=== PATIENT | male | born 1930 | race Caucasian/White ===

== ENCOUNTER 2017-01-27 10:11 | Inpatient (IN) ==
--- NOTE | 2017-01-27 10:35 | Emergency Department Note ---
Disposition Clinical Impression: Nausea vomiting and diarrhea Abdominal pain Qualifiers: Abdominal location: generalized Qualified Code(s): R10.84 - Generalized abdominal pain Disposition: Admitted As Inpatient Condition: Fair Referrals: Carlos Danielle Jr, MD [Primary Care Provider] - Forms: ED Satisfaction Letter Time of Disposition: 14:39 Nausea/Vomiting/Diarrhea HPI - General Chief complaint: ED Nausea/Vomiting/Diarrhea Stated complaint: N/V/D "chills" Time Seen by Provider: 01/27/17 10:29 Source: patient Mode of arrival: ambulatory Limitations: no limitations Nursing Notes Reviewed: Yes Vital Signs Reviewed: Yes - History of Present Illness HPI Narrative: 86-year-old male who comes in and states he was hospitalized in November 5 days after being discharged to develop some intermittent nausea vomiting and diarrhea. Also been having some chills. Pt Subjective Complaint: nausea, vomiting, diarrhea Onset (ago): week(s) (Supple) Description of emesis: food contents Description of Diarrhea: water If pain, Location of pain: diffuse Severity: mild Quality: cramping - Related Data Home Medications Medication Instructions Recorded Confirmed Aspirin 81 mg PO DAILY 12/04/16 12/05/16 Atorvastatin Calcium [Lipitor] 20 mg PO HS 12/04/16 12/05/16 Tamsulosin [Flomax] 0.4 mg PO DAILY 12/04/16 12/05/16 Clopidogrel [Plavix] 75 mg PO DAILY 12/05/16 12/05/16 Finasteride [Proscar] 5 mg PO DAILY 12/05/16 12/05/16 Ibuprofen [Advil] 400 mg PO DAILY 12/05/16 12/05/16 Allergies Allergy/AdvReac Type Severity Reaction Status Date / Time phenobarbital Allergy Rash Verified 01/27/17 10:20 Constitutional: Denies: fever, chills, weakness, weight change Eyes: Denies: eye pain, eye discharge, vision change ENT ED: Denies: ear pain, throat pain, dental pain, hearing loss, epistaxis, congestion, dysphagia Cardiovascular: Denies: chest pain, palpitations, dyspnea on exertion, edema, syncope Respiratory: Denies: cough, dyspnea, wheezes, hemoptysis, stridor Gastrointestinal: Reports: abdominal pain, nausea, vomiting, diarrhea. Denies: constipation, hematemesis, melena, hematochezia Genitourinary: Denies: urgency, dysuria, frequency, hematuria Musculoskeletal: Denies: back pain, neck pain, arthralgia, myalgia Integumentary: Denies: rash, abrasion, lesions Neurological: Denies: headache, weakness, numbness, paresthesias, confusion, abnormal gait, vertigo Psychiatric: Denies: anxiety, depression, suicidal thoughts, homicidal thoughts , auditory hallucinations, visual hallucinations Endocrine: Denies: fatigue Hematological/Lymphatic: Denies: easy bleeding, easy bruising Allergic/Immunologic: Denies: facial swelling, urticaria Past Medical History - Past Medical History Medical history: Reports: arthritis, atrial fibrillation, cancer, coronary artery disease, other Surgical history: Reports: cholecystectomy, colectomy Psychiatric history: Reports: no psych history - Social History Smoking Status: Never smoker Smokeless Tobacco Status: No Alcohol use: Reports: occasionally Drug use: Reports: none Physical Exam - General Limitations: no limitations General appearance: alert, in no apparent distress - Head Head exam: atraumatic, normocephalic, normal inspection - Eye Eye exam: Present: normal appearance, PERRL, EOMI - ENT ENT exam: normal exam, normal oropharynx, mucous membranes moist - Neck Neck exam: Present: normal inspection, full ROM, trachea midline - Chest Chest inspection: Present: normal inspection, symmetric chest wall rise - Respiratory Respiratory exam: Present: normal lung sounds bilaterally - Cardiovascular Cardiovascular exam: Present: regular rate, normal rhythm, normal heart sounds - Abdominal Exam Abdominal exam: Present: soft, Non-Tender. Absent: tenderness, distention, guarding, rebound, rigidity - Extremities Exam Extremities exam: Present: normal inspection, full ROM. Absent: tenderness, pedal edema - Expanded Lower Extremity Exam Neurovascular/Tendon exam: Present: normal capillary refill Gait: observed and normal - Back Exam Back exam: Present: normal inspection, full ROM. Absent: tenderness - Neurological Exam Neurological exam: Present: alert, oriented X3 - Psychiatric Psychiatric exam: Present: normal affect, normal mood - Skin Skin exam: Present: warm, dry, intact, normal color Course - Reevaluation(s) Reevaluation #1: Patient with intermittent nausea vomiting diarrhea large ventral hernia and shaking chills. Patient does have a large ventral hernia which does not appear to be obstructing. We will admit for further evaluation. Time: 14:38 - Consultations Consultation #1: Discussed with , the hospitalist he will consult Time: 13:30 Consultation #2: Discussed with Faviola [address] nurse practitioner, admit. Time: 14:37 Vital Signs Temperature 98.5 F 01/27/17 10:16 Pulse Rate 77 01/27/17 10:16 Respiratory Rate 18 01/27/17 10:16 Blood Pressure 126/82 01/27/17 10:16 O2 Sat by Pulse Oximetry 97 01/27/17 10:16 Temperature 98.5 F 01/27/17 10:16 Pulse Rate 68 01/27/17 12:59 Respiratory Rate 18 01/27/17 10:16 Blood Pressure 120/72 01/27/17 12:59 O2 Sat by Pulse Oximetry 98 01/27/17 12:59 Oxygen Delivery Oxygen Delivery Room Air Nausea/Vomiting/Diarrhea - Lab Data Lab results reviewed: Yes I reviewed the patient's lab results. Result diagrams: 01/27/17 10:30 01/27/17 10:30 Lab Results 01/27/17 01/27/17 Range/Units 10:30 10:30 WBC 13.4 H (4.3-11.1) K/mcL RBC 4.86 (4.19-5.50) M/mcL Hgb 14.6 (12.9-16.9) g/dL Hct 43.6 (37.5-50.1) % MCV 89.7 (83.0-100.0) fL MCH 30.0 (28.0-33.3) pg MCHC 33.5 (31.6-35.5) g/dL RDW 14.1 (11.5-14.5) % Plt Count 150 (140-400) K/mcL MPV 11.8 (9.4-12.4) fL Immature Gran % 0.5 (0-4) % Seg Neutrophils % 89.3 % Lymphocytes % 4.4 % Monocytes % 5.7 % Eosinophils % 0.0 % Basophils % 0.1 % Neutrophils # 12.0 H (1.6-8.9) K/mcL Lymphocytes # 0.6 (0.6-4.6) K/mcL Monocytes # 0.8 (0.0-1.3) K/mcL Eosinophils # 0.0 (0.0-0.6) K/mcL Basophils # 0.0 (0.0-0.2) K/mcL Sodium 137 (136-145) mEq/L Potassium 4.0 (3.5-4.5) mEq/L Chloride 103 (98-109) mEq/L Carbon Dioxide 25 (19-29) mEq/L BUN 14 (8-26) mg/dL Creatinine 0.92 (0.72-1.25) mg/dL Est GFR ( Amer) > 60 (> 60) Est GFR (Non-Af Amer) > 60 (> 60) BUN/Creatinine Ratio 15 (6-26) Glucose 133 H (70-99) mg/dL Calculated Osmolality 286 (280-300) Calcium 9.2 (8.6-10.8) mg/dL Amylase 30 (25-125) Units/L Lipase 31 (8-78) Units/L - Radiology Data Radiology results reviewed: Yes I reviewed the patient's radiology results. Abdomen/Pelvis CT 01/27/17 10:33 IMPRESSION: Status post previous bowel surgery. No bowel obstruction is seen. There is re-demonstration of a wide-mouth ventral hernia containing nondistended loops of large and small bowel. Enlarged prostate. Pneumobilia with stable mild biliary distention. The patient has undergone previous cholecystectomy. Bilateral renal cysts. Atherosclerotic vascular calcifications. Small right pleural effusion. Minimal right basilar atelectasis. Degenerative changes throughout the lumbar spine. D/ / 01/27/2017 11:43:00 Rolo Dhaliwal MD / Ruma Dangelo Interpreting Provider: Rolo Dhaliwal MD - EKG Data When compared to previous EKG there are: no significant changes Interpretation: no acute changes
[2017-01-27 11:05] LABS: Basophils % 0.1 %; Hematocrit 43.6 % (37.5-50.1); Hemoglobin 14.6 g/dL (12.9-16.9); Immature Granulocytes % 0.5 % (0-4); Lymphocytes # 0.6 K/mcL (0.6-4.6); Lymphocytes % 4.4 %; Mean Corpuscular HGB Conc 33.5 g/dL (31.6-35.5); Mean Corpuscular Volume 89.7 fL (83.0-100.0); Mean Platelet Volume 11.8 fL (9.4-12.4); Monocytes # 0.8 K/mcL (0.0-1.3); Monocytes % 5.7 %; Platelet Count 150 K/mcL (140-400); Red Blood Count 4.86 M/mcL (4.19-5.50); Red Cell Distribution Width 14.1 % (11.5-14.5); Segmented Neutrophils % 89.3 %
[2017-01-27 11:17] LABS: Amylase 30 Units/L (25-125); BUN/Creatinine Ratio 15 (6-26); Blood Urea Nitrogen 14 mg/dL (8-26); Calcium 9.2 mg/dL (8.6-10.8); Carbon Dioxide 25 mEq/L (19-29); Chloride 103 mEq/L (98-109); Glucose 133 mg/dL (70-99); Lipase 31 Units/L (8-78); Osmolality,Calculated 286 (280-300); Sodium 137 mEq/L (136-145); eGFR For African Americans > 60 (> 60); eGFR For Non-African Americans > 60 (> 60)
[2017-01-27] MEDS ORDERED: Ondansetron 4 MG/2 ML VIAL IVP PRN (16:19)
[2017-01-27] MEDS ORDERED: Naloxone 0.4 MG/ML INJ IVP PRN (16:19)
--- NOTE | 2017-01-27 16:59 | Internal Med History&Physical ---
<Jose Luna - Last Filed: 01/27/17 20:39> Internal Medicine - H&P: HPI History of present illness: Mr. Phelps is a 86 year old male Internal Medicine - H&P: Meds Aspirin 81 mg PO DAILY 12/04/16 [History] Atorvastatin Calcium [Lipitor] 20 mg PO HS 12/04/16 [History] Tamsulosin [Flomax] 0.4 mg PO DAILY 12/04/16 [History] Clopidogrel [Plavix] 75 mg PO DAILY 12/05/16 [History] Finasteride [Proscar] 5 mg PO DAILY 12/05/16 [History] Allergies phenobarbital Allergy (Verified 01/27/17 10:20) Rash All Systems PM: A 10-system review of systems was performed and is negative for pertinent findings except as documented above in the HPI. - Constitutional Vitals: Temp Pulse Resp BP Pulse Ox 98.5 F 61 16 108/65 95 01/27/17 19:22 01/27/17 19:22 01/27/17 19:22 01/27/17 19:22 01/27/17 19:22 Internal Med - H&P Results - Labs CBC & Chem 7: 01/27/17 10:30 01/27/17 10:30 - Attending Attestation I examined this patient and my medical decision-making was reviewed with the Advanced Practice Provider. I agree with the documented findings, disposition and treatment plan as described except to the extent set forth below. He presented to the hospital for evaluation of hernia. He reports continuing to pass bowel movements and has had gas. On exam he has a large ventral abdominal hernia which is partially reducible, abdomen is soft and nontender. There are good bowel sounds audible. Plan: 1 metatarsal surface. IV fluids and electrolytes. Nothing by mouth after midnight. Surgical consult for ventral hernia repair. <Faviola Way - Last Filed: 01/27/17 21:09> Date of Encounter: 01/27/17 Time of Encounter: 16:58 Assessment and Plan (1) Nausea vomiting and diarrhea Current visit: Yes Status: Acute 1 patient has been experiencing intermittent nausea vomiting and diarrhea since November. CT revealed no bowel obstruction 2 anti-emetics as needed 3 diet as tolerated 4 consulted surgery-per ED (2) Leukocytosis Current visit: No Status: Acute 1 patient has some leukocytosis-may be reactive presently WBC 13.4, 12/19/16 WBC 9.[address] abdomen lungs with small right pleural effusion and atelectasis, will obtain urine to rule out source 2 continue to monitor CBC Qualifiers: Leukocytosis type: unspecified Qualified Code(s): D72.829 - Elevated white blood cell count, unspecified (3) Abdominal hernia Current visit: No Status: Chronic 1 she has chronic abdominal hernia from previous surgeries. CT of abdomen shows no bowel obstruction however there is bowel within the hernia. Consulted surgery Qualifiers: Hernia type: incisional Obstruction and gangrene presence: with obstruction but without gangrene Qualified Code(s): K43.0 - Incisional hernia with obstruction, without gangrene (4) Afib Current visit: No Status: Chronic 1 is only rate controlled continue with aspirin Qualifiers: Atrial fibrillation type: chronic Qualified Code(s): I48.2 - Chronic atrial fibrillation (5) CAD (coronary artery disease) Current visit: No Status: Chronic 1 A she has history of stents will continue with aspirin and Plavix as well as statin Qualifiers: Coronary Disease-Associated Artery/Lesion type: [place] artery [place] vs. transplanted heart: [place] heart Associated angina: without angina Qualified Code(s): I25.10 - Atherosclerotic heart disease of [place] coronary artery without angina pectoris (6) DVT prophylaxis Current visit: No Status: Acute 1 [facility] Internal Medicine - H&P: HPI Chief complaint: N/V/D abd pain Admitted From: Emergency Dept Plans for Post Hospital Care: Home History of present illness: Mr. Phelps is a 86 year old male past medical history of atrial fibrillation hypertension coronary artery disease with 2 stents and colon cancer. He has a large abdominal hernia from multiple surgeries in the past. The patient was recently admitted to the hospital in November 2016 with small bowel obstruction. He was discharged the patient states since his discharge she has been experiencing intermittent abdominal cramping nausea vomiting and diarrhea, chills . He has been able to eat and drink, and has been passing gas. He denies any melena hematochezia or hematemesis. He did experience on Wednesday an episode of abdominal cramping as well as loose stool and vomited undigested food. He denies any abdominal distention fevers chills cough chest pain shortness of breath. He presented to the ER with the above complaints according to the ER records CT of abdomen with no evidence of bowel obstruction his lab work did reveal a elevated white count 13.4 on 12/19/16 white count was 9.9. He is afebrile temperature 98.5 heart rate 68 pressure 122/72. ER physician did speak with Dr. Stern he stated he would see the patient on consult and to admit to hospitalist services. He was admitted for further evaluation. Presently the patient denies any nausea vomiting diarrhea chest pain stress of breath he is hemodynamically stable. I reviewed this case with Dr. Luna who agrees with plan Past Med Surg Social Fam HX - Past Medical History Medical history: arthritis, atrial fibrillation, cancer, coronary artery disease , other Psychiatric history: no psych history - Past Surgical History Surgical History: cholecystectomy, colectomy - Social History Smoking Status: Never smoker Smokeless Tobacco Status: No Alcohol use: occasionally Drug use: none - Family History Daughter Living Status: Still Living Hx Family Cardiac Disorders: No Hx Family Respiratory Disorders: No Hx Family Cancer: No Hx Family GI Disorders: No Hx Family Endocrine Disorder: No Hx Family Neuromuscular Disorders: No Hx Family Neurologic Disorders: No Hx Family HEENT Disorders: No Hx Family Autoimmune Disorders: No All Systems PM: A 10-system review of systems was performed and is negative for pertinent findings except as documented above in the HPI. - Constitutional Constitutional: chills - Cardiovascular Cardiovascular ROS IM: no chest pain, no diaphoresis, no dyspnea, no lightheadedness, no palpitations, no syncope - Respiratory Respiratory: no cough, no dyspnea, no wheezing, no excessive phlegm production - Gastrointestinal Gastrointestinal: cramping, diarrhea, nausea, vomiting - Musculoskeletal Musculoskeletal ROS IM: no numbness, no tingling - Neurological Neurological ROS: no confusion, no convulsions, no focal weakness, no numbness, no tingling, no tremor(s) - Constitutional Vitals: Temp Pulse Resp BP Pulse Ox 0 F L 68 16 122/75 98 01/27/17 15:33 01/27/17 12:59 01/27/17 15:33 01/27/17 15:33 01/27/17 12:59 General appearance: Present: A&O X 3, morbidly obese - Eye Eye exam: Present: PERRL, conjuntiva pink, sclera anicteric Pupils: Present: PERRL - Neck Neck exam general surgery: Present: supple, trachea midline. Absent: lymphadenopathy - Respiratory Respiratory exam: Present: CTAB. Absent: accessory muscle use, rales, rhonchi, wheezes - Cardiovascular Cardiovascular exam: Present: RRR, +S1, +S2. Absent: diastolic murmur, gallop, rubs, systolic murmur - GI/Abdominal GI/Abdominal exam: Present: hernia, normal bowel sounds, soft, no peritoneal signs. Absent: distended, tenderness - Extremities Exam Extremities exam: Present: warm, radial pulses palpable and symetrical. Absent : calf tenderness, cyanotic, pedal edema - Neurological Exam Neurological exam: Present: CN II-XII intact, oriented X3, no focal deficits. Absent: pronater drift, facial droop, speech deficit - Skin Skin exam: Present: dry, intact Internal Med - H&P Results - Labs CBC & Chem 7: 01/27/17 10:30 01/27/17 10:30 - Diagnostic Studies Other Images Additional comments: Abdomen/Pelvis CT 01/27/17 10:33 IMPRESSION: Status post previous bowel surgery. No bowel obstruction is seen. There is re-demonstration of a wide-mouth ventral hernia containing nondistended loops of large and small bowel. Enlarged prostate. Pneumobilia with stable mild biliary distention. The patient has undergone previous cholecystectomy. Bilateral renal cysts. Atherosclerotic vascular calcifications. Small right pleural effusion. Minimal right basilar atelectasis. Degenerative changes throughout the lumbar spine. D/ / 01/27/2017 11:43:00 Rolo Dhaliwal MD / Ruma Dangelo Interpreting Provider: Rolo Dhaliwal MD
[2017-01-27] MEDS ORDERED: 0.9 % Sodium Chloride 1,000 ML IVC ONE (17:58)
[2017-01-27] MEDS ORDERED: *HR* HYDROcodone/Acet 5/325 mg TABLET PO PRN (18:33)
[2017-01-27] MEDS ORDERED: Acetaminophen 325 MG TABLET PO PRN (18:33)
[2017-01-28 01:39] LABS: Acinetobacter baumannii by PCR Not Detected (Not Detect); Candida albicans by PCR Not Detected (Not Detect); Candida glabrata by PCR Not Detected (Not Detect); Candida krusei by PCR Not Detected (Not Detect); Candida parapsilosis by PCR Not Detected (Not Detect); Enterococcus by PCR Not Detected (Not Detect); Escherichia coli by PCR Not Detected (Not Detect); Klebsiella oxytoca by PCR ***DETECTED*** (Not Detect); Klebsiella pneumoniae by PCR Not Detected (Not Detect); Pseudomonas aeruginosa by PCR Not Detected (Not Detect); Serratia marcescens by PCR Not Detected (Not Detect); Staphylococcus aureus by PCR Not Detected (Not Detect); Streptococcus agalactiae(B)PCR Not Detected (Not Detect); Streptococcus by PCR Not Detected (Not Detect); Streptococcus pneumoniae PCR Not Detected (Not Detect); Streptococcus pyogenes (A) PCR Not Detected (Not Detect); blaKPC Carbapenem-Resist Gene Not Detected (Not Detect); mecA Methicillin-Resist Gene Not Detected (Not Detect); vanA/B Vancomycin-Resist Genes Not Detected (Not Detect)
[2017-01-28 01:41] LABS: Candida tropicalis by PCR Not Detected (Not Detect)
[2017-01-28 01:45] LABS: Bilirubin,Urine Small (Negative); Blood,Urine Negative (Negative); Clarity,Urine Cloudy (Clear); Color,Urine Dark Yellow (Yellow); Glucose,Urine (UA) Normal (Normal); Ketones,Urine 15 mg/dL (Negative); Leukocyte Esterase,Urine Negative (Negative); Nitrite,Urine Negative (Negative); Protein,Urine Trace mg/dL (Neg-Trace); Specific Gravity,Urine 1.024 (1.010-1.025)
[2017-01-28 01:47] LABS: Bacteria,Urine None Seen per hpf (None-Few); Hyaline Casts,Urine None Seen per lpf (None-Few); RBC,Urine 0-3 per hpf (0-3); Squamous Epithelial Cell,Urine Many per lpf (None-Few); WBC,Urine 0-3 per hpf (0-3)
--- NOTE | 2017-01-28 02:11 | Event Note ---
Date of Encounter: 01/28/17 Time of Encounter: 02:08 I was notified that the blood culture is positive for klebsiella oxytoca ( prelim report). Pt seemed to be admitted yesterday with abdominal pain and the blood cultures are showing the organisms. will treat with ceftriaxone and probiotics. UA was negative. will request stool cultures and c diff, in view of h/o diarrhea
[2017-01-28] MEDS: Lactobacillus 1 EACH CAP.SPRINK PO SCH ×3 (02:54→20:25)
[2017-01-28 04:52] LABS: Basophils % 0.1 %; Hematocrit 39.1 % (37.5-50.1); Immature Granulocytes % 0.7 % (0-4); Lymphocytes # 0.6 K/mcL (0.6-4.6); Lymphocytes % 4.4 %; Mean Corpuscular HGB Conc 32.7 g/dL (31.6-35.5); Mean Corpuscular Hemoglobin 28.8 pg (28.0-33.3); Mean Corpuscular Volume 87.9 fL (83.0-100.0); Mean Platelet Volume 11.4 fL (9.4-12.4); Monocytes # 1.1 K/mcL (0.0-1.3); Monocytes % 7.9 %; Neutrophils # 12.1 K/mcL (1.6-8.9); Platelet Count 126 K/mcL (140-400); Red Blood Count 4.45 M/mcL (4.19-5.50); Red Cell Distribution Width 13.9 % (11.5-14.5); Segmented Neutrophils % 86.9 %
[2017-01-28 05:06] LABS: BUN/Creatinine Ratio 16 (6-26); Blood Urea Nitrogen 11 mg/dL (8-26); Carbon Dioxide 23 mEq/L (19-29); Chloride 104 mEq/L (98-109); Glucose 122 mg/dL (70-99); Osmolality,Calculated 277 (280-300); Potassium 3.8 mEq/L (3.5-4.5); Sodium 133 mEq/L (136-145); eGFR For African Americans > 60 (> 60); eGFR For Non-African Americans > 60 (> 60)
[2017-01-28] MEDS: *HR* Enoxaparin 40 MG/0.4 ML SYRINGE SQ SCH (05:10)
[2017-01-28 05:17] LABS: Hemoglobin 12.8 g/dL (12.9-16.9)
[2017-01-28] MEDS: Finasteride 5 MG TABLET PO SCH (09:22)
[2017-01-28] MEDS: Aspirin 81 MG TAB.CHEW PO SCH (09:23)
[2017-01-28 11:14] LABS: Adenovirus F 40/41 PCR Not detected (Not detect); Astrovirus PCR Not detected (Not detect); Campylobacter by PCR Not detected (Not detect); Cryptosporidium by PCR Not detected (Not detect); Cyclospora cayetanensis PCR Not detected (Not detect); E. coli O157 by PCR Not detected (Not detect); Entamoeba histolytica PCR Not detected (Not detect); Enteroaggregative E.coli(EAEC) Not detected (Not detect); Enteropathogenic E.coli(EPEC) Not detected (Not detect); Enterotoxigenic E.coli (ETEC) Not detected (Not detect); Giardia lamblia PCR Not detected (Not detect); Norovirus GI/GII PCR Not detected (Not detect); Plesiomonas shigelloides PCR Not detected (Not detect); Rotavirus A PCR Not detected (Not detect); Salmonella PCR Not detected (Not detect); Sapovirus PCR Not detected (Not detect); Shig/EnteroinvasiveE coli EIEC Not detected (Not detect); Shigalike tox-prod E coli STEC Not detected (Not detect); Vibrio PCR Not detected (Not detect); Vibrio cholerae PCR Not detected (Not detect); Yersinia enterocolitica PCR Not detected (Not detect)
--- NOTE | 2017-01-28 13:50 | Internal Med Progress Note ---
Date of Encounter: 01/28/17 Time of Encounter: 13:45 - Assessment and plan (1) Bacteremia Current Visit: Yes Status: Acute Assessment and plan: blood cx growing gram negative iris, has been started on IV ceftriaxone. Patient feels better today, less chills, no fever at this time. We will follow up final culture results, repeat blood culture tomorrow. Patient might need to go home on IV antibiotics given bacteremia. Unclear source at this time, ua seems clear, chest x-ray shows no pneumonia. will continue to monitor. (2) Nausea vomiting and diarrhea Current Visit: Yes Status: Acute Assessment and plan: improved. abd ct shows no obstruction, moving bowels part of his symptoms may be 2/2 bacteremia. surgery following, has large ventral hernia. will follow surgical recommendations. (3) Afib Current Visit: No Status: Chronic Assessment and plan: stable, continue home meds Qualifiers: Atrial fibrillation type: chronic Qualified Code(s): I48.2 - Chronic atrial fibrillation (4) CAD (coronary artery disease) Current Visit: No Status: Chronic Assessment and plan: continue home meds Qualifiers: Coronary Disease-Associated Artery/Lesion type: [place] artery [place] vs. transplanted heart: [place] heart Associated angina: without angina Qualified Code(s): I25.10 - Atherosclerotic heart disease of [place] coronary artery without angina pectoris (5) HLD (hyperlipidemia) Current Visit: No Status: Chronic Assessment and plan: continue home meds Qualifiers: Hyperlipidemia type: unspecified Qualified Code(s): E78.5 - Hyperlipidemia , unspecified - Time Spent With Patient 25 - 35 minutes - Subjective Interval history: stephenie admitted for chills, n/v h/o mulitple surgeries in skip past, recently admitted on nov 2016 for SBO currently passing gas and moving his bowels, denies any abdominal pain. However still has some nausea, but reports that he was able to eat a good breakfast this morning. no h/o IV lines, indwelling catheters, bedsores, dental caries. he denies any urinary symptoms as well. - Constitutional Vitals: Temp Pulse Resp BP Pulse Ox 97.9 F 72 16 155/89 96 01/28/17 10:23 01/28/17 10:23 01/28/17 10:23 01/28/17 10:23 01/28/17 10:23 General appearance: Present: A&O X 3, morbidly obese Exam: - Eye Eye exam: Present: PERRL, conjuntiva pink, sclera anicteric Pupils: Present: PERRL - Neck Neck exam general surgery: Present: supple, trachea midline. Absent: lymphadenopathy - Respiratory Respiratory exam: Present: CTAB. Absent: accessory muscle use, rales, rhonchi, wheezes - Cardiovascular Cardiovascular exam: Present: RRR, +S1, +S2. Absent: diastolic murmur, gallop, rubs, systolic murmur - GI/Abdominal GI/Abdominal exam: Present: hernia, normal bowel sounds, soft, no peritoneal signs. Absent: distended, tenderness - Extremities Exam Extremities exam: Present: warm, radial pulses palpable and symetrical. Absent : calf tenderness, cyanotic, pedal edema - Neurological Exam Neurological exam: Present: CN II-XII intact, oriented X3, no focal deficits. Absent: pronater drift, facial droop, speech deficit - Skin Skin exam: Present: dry, intact Internal Medicine: Result - Labs CBC & Chem 7: 01/28/17 04:25 01/28/17 04:25 Labs: Short CBC 01/28/17 Range/Units 04:25 WBC 13.9 H (4.3-11.1) K/mcL Hgb 12.8 L D (12.9-16.9) g/dL Hct 39.1 (37.5-50.1) % Plt Count 126 L (140-400) K/mcL Neutrophils # 12.1 H (1.6-8.9) K/mcL BMP 01/28/17 04:25 Sodium 133 L Potassium 3.8 Chloride 104 Carbon Dioxide 23 BUN 11 Creatinine 0.68 L Glucose 122 H Calcium 8.0 L Urine 01/28/17 Range/Units 01:30 Urine Color Dark Yellow (Yellow) Urine Clarity Cloudy A (Clear) Urine pH 6.0 (5.0-8.0) pH Units Ur Specific [place] 1.024 (1.010-1.025) Urine Protein Trace (Neg-Trace) mg/dL Urine Glucose (UA) Normal (Normal) mg/dL - Impressions Impressions Chest X-Ray 01/28/17 11:52 IMPRESSION: Low lung volume study showing mild bibasilar airspace disease, likely atelectasis. Pneumonia cannot be excluded. D/ / Valerie Mesa Cha, MD / Valerie Mesa Cha, MD Interpreting Provider: Valerie Mesa Cha, MD Consult Discharge Plan - Plan Referrals: Carlos Danielle Jr, MD [Primary Care Provider] -
[2017-01-29 04:51] LABS: Hematocrit 38.1 % (37.5-50.1); Hemoglobin 12.4 g/dL (12.9-16.9); Immature Granulocytes % 0.5 % (0-4); Lymphocytes % 6.9 %; Mean Corpuscular HGB Conc 32.5 g/dL (31.6-35.5); Mean Corpuscular Hemoglobin 28.7 pg (28.0-33.3); Mean Corpuscular Volume 88.2 fL (83.0-100.0); Mean Platelet Volume 11.9 fL (9.4-12.4); Platelet Count 132 K/mcL (140-400); Red Blood Count 4.32 M/mcL (4.19-5.50); Red Cell Distribution Width 13.8 % (11.5-14.5); Segmented Neutrophils % 82.1 %
[2017-01-29 04:52] LABS: Basophils % 0.3 %; Eosinophils % 0.4 %; Lymphocytes # 0.8 K/mcL (0.6-4.6); Monocytes # 1.1 K/mcL (0.0-1.3); Monocytes % 9.8 %; Neutrophils # 9.1 K/mcL (1.6-8.9)
[2017-01-29 05:06] LABS: BUN/Creatinine Ratio 15 (6-26); Blood Urea Nitrogen 11 mg/dL (8-26); Calcium 7.8 mg/dL (8.6-10.8); Carbon Dioxide 24 mEq/L (19-29); Chloride 102 mEq/L (98-109); Glucose 109 mg/dL (70-99); Osmolality,Calculated 278 (280-300); Potassium 3.6 mEq/L (3.5-4.5); Sodium 134 mEq/L (136-145); eGFR For African Americans > 60 (> 60); eGFR For Non-African Americans > 60 (> 60)
[2017-01-29] MEDS: *HR* Enoxaparin 40 MG/0.4 ML SYRINGE SQ SCH (05:50)
[2017-01-29] MEDS: Aspirin 81 MG TAB.CHEW PO SCH (09:21)
[2017-01-29] MEDS: Lactobacillus 1 EACH CAP.SPRINK PO SCH ×2 (09:21→19:50)
[2017-01-29] MEDS: Finasteride 5 MG TABLET PO SCH (09:21)
--- NOTE | 2017-01-29 12:07 | General Surgery Consult Note ---
Date of Encounter: 01/29/17 Time of Encounter: 11:22 History of Present Illness Reason for consult: abdominal pain (chills, rigors, nausea and vomiting) Requesting physician: Jeovany Rao History of present illness: This is a delayed dictation: the patient was seen and examined, 01/28/2017, with review Xrays and labs and discussion of findings with patient and family Patient also seen and examined, 01/29/2017. 86-year-old male, well known to me, referred after presenting to the emergency department with recurrent nausea, vomiting, diarrhea. The symptoms were reported to be ongoing for 3 days prior to presentation to the ED. Patient also was experiencing chills and rigors. CT abd/pelvis, 01/27/[address] 12/05/2016, was personally reviewed with [facility]. Patient had a similar presentation and admission 12/05/2016, after undergoing mechanical bowel prep and colonoscopy, 12/04/2016, by Dr Winslow. The colonoscopic findings include : enlarged prostate, patent end to side ileocolic anastomosis iwth no detected polyps. The patient apparently tolerated the colonoscopy well but that evening returned to the ED with abdominal distention, nausea and vomiting. X-rays demonstrated stable ventral incisional hernia containing several loops small with dilated small bowel proximal to those loops within the hernia. The radiologic interpretation described a low grade SBO. The symptoms resolved quickly (within 24 hours) with the patient discharged home 12/07/2016. As noted above, the patient returned to [facility], 01/27/17, with similar complaints. On my arrival to examine the patient, 01/28/2017, the patient was eating a regular meal, indicating that his symptoms had resolved. Blood cultures were positive for GNR, Klebsiella oxytoca. Sensitivities are still pending at the time of this dictation. Repeat examination this date, 01/29/2017, demonstrates an elderly patient in NAD. He has experienced no recurrent abdominal pain, nausea or vomiting. Despite the bacteremia, the patient has remained afebrile and is currently 98.5; pulse is 68, respirations 16, blood pressure 115/69. Patient has remained hemodynamically stable since admission. His only complaint, chills and rigors, have resolved. Skin: Warm, no obvious jaundice Lungs: Clear; no abdominal pain with deep inspiration Cardiac exam: Rate slightly irregular Abdomen: Soft, nontender. Prominent ventral incisional hernia at the cephalad pole of a midline incision to the right of midline. The hernia is easily reducible, with no mevident incarcerated tissue (the CT demonstrates a wide mouthed ventral hernia containing loops non distended small bowel and colon). Bowel sounds are active. Extremities: no obvioous clubbing, cyanosis, or edema Medical history: atrial fibrillation; aortic aneurysm; paroxysmal naz bradycardia; colon cancer, 1993; coronary artery disease, chronic pneumobilia; hyperlipidemia Surgical history: cholecystecomy with reconstruction bile duct 1963; coronary stents x2, 2012; colectomy 2003; history perforated small bowel related to "stenting lower intestine" 2007; colonoscopic polypectomy 2003; cardiac ablation ; prostate surgery 2010. Allergies: phenobarbital Medications on admission: Aspirin 81 mg by mouth daily Atorvastatin 20 mg by mouth daily at bedtime Tamsulosin 0.4 mg by mouth daily Clopidogrel 75 mg by mouth daily Finasteride 5 mg daily Ibuprofen 400 mg by mouth daily Impression: 86-year-old male with recurrent hospitalization for abdominal pain and pain, nausea and vomiting. Patient has known ventral incisional hernia(s) which appear to be stable on repeated radiologic examination but contain loops of small bowel and possibly colon with evidence of, at least, a low-grade small bowel obstruction. With recurrent symptoms, surgery has been discussed in great detail. Risks include hemorrhage, infection, intra abdominal abscess, injury to adjacent structures, possible ilestomy or colostomy, cardiac risks including arrhythmia and GA, respiratory risks, and recurrent hernia. The patient wishes to continue to defer surgery but the recurrent symptoms are concerning. Current bacteremia, Klebsiella oxytoca, undergoing treatment. Etiology for the bacteremia yet to be identified. Based on my conversation with the patient and his family, surgery to be deferred unless recurrent symptoms develop. Past Med Surg Social Fam HX - Past Medical History Medical history: arthritis, atrial fibrillation, cancer, coronary artery disease , other Psychiatric history: no psych history - Past Surgical History Surgical History: cholecystectomy, colectomy - Social History Smoking Status: Never smoker Smokeless Tobacco Status: No Alcohol use: occasionally Drug use: none - Family History Daughter Living Status: Still Living Hx Family Cardiac Disorders: No Hx Family Respiratory Disorders: No Hx Family Cancer: No Hx Family GI Disorders: No Hx Family Endocrine Disorder: No Hx Family Neuromuscular Disorders: No Hx Family Neurologic Disorders: No Hx Family HEENT Disorders: No Hx Family Autoimmune Disorders: No Medications and Allergies Aspirin 81 mg PO DAILY 12/04/16 [History] Atorvastatin Calcium [Lipitor] 20 mg PO HS 12/04/16 [History] Tamsulosin [Flomax] 0.4 mg PO DAILY 12/04/16 [History] Clopidogrel [Plavix] 75 mg PO DAILY 12/05/16 [History] Finasteride [Proscar] 5 mg PO DAILY 12/05/16 [History] Allergies phenobarbital Allergy (Verified 01/27/17 10:20) Rash Review of Systems All systems PM: A 10-system review of systems was performed and is negative for pertinent findings except as documented above in the HPI. General Surgery Exam Initial Vital Signs Temp Pulse Resp BP Pulse Ox 98.5 F 77 18 126/82 97 01/27/17 10:16 01/27/17 10:16 01/27/17 10:16 01/27/17 10:16 01/27/17 10:16 Exam Initial Vital Signs Temp Pulse Resp BP Pulse Ox 98.5 F 77 18 126/82 97 01/27/17 10:16 01/27/17 10:16 01/27/17 10:16 01/27/17 10:16 01/27/17 10:16 Results - Labs 01/29/17 04:04 01/29/17 04:04 Abnormal lab results Hgb 12.4 g/dL (12.9-16.9) L 01/29/17 04:04 Plt Count 132 K/mcL (140-400) L 01/29/17 04:04 Neutrophils # 9.1 K/mcL (1.6-8.9) H 01/29/17 04:04 Sodium 134 mEq/L (136-145) L 01/29/17 04:04 Creatinine 0.71 mg/dL (0.72-1.25) L 01/29/17 04:04 Glucose 109 mg/dL (70-99) H 01/29/17 04:04 Calculated Osmolality 278 (280-300) L 01/29/17 04:04 Calcium 7.8 mg/dL (8.6-10.8) L 01/29/17 04:04 Urine Clarity Cloudy (Clear) A 01/28/17 01:30 Urine Ketones 15 mg/dL (Negative) H 01/28/17 01:30 Urine Bilirubin Small (Negative) H 01/28/17 01:30 Urine Urobilinogen 2.0 mg/dL (Normal) H 01/28/17 01:30 Ur Squamous Epith Cells Many per lpf (None-Few) H 01/28/17 01:30 Enterobacteriac sp PCR DETECTED (Not Detect) A 01/27/17 11:19 Klebsiella oxytoca PCR DETECTED (Not Detect) A 01/27/17 11:19 Diabetes panel 01/29/17 Range/Units 04:04 Sodium 134 L (136-145) mEq/L Potassium 3.6 (3.5-4.5) mEq/L Chloride 102 (98-109) mEq/L Carbon Dioxide 24 (19-29) mEq/L BUN 11 (8-26) mg/dL Creatinine 0.71 L (0.72-1.25) mg/dL Glucose 109 H (70-99) mg/dL Calcium 7.8 L (8.6-10.8) mg/dL Calcium panel 01/29/17 Range/Units 04:04 Calcium 7.8 L (8.6-10.8) mg/dL Pituitary panel 01/29/17 Range/Units 04:04 Sodium 134 L (136-145) mEq/L Potassium 3.6 (3.5-4.5) mEq/L Chloride 102 (98-109) mEq/L Carbon Dioxide 24 (19-29) mEq/L BUN 11 (8-26) mg/dL Creatinine 0.71 L (0.72-1.25) mg/dL Glucose 109 H (70-99) mg/dL Calcium 7.8 L (8.6-10.8) mg/dL Adrenal panel 01/29/17 Range/Units 04:04 Sodium 134 L (136-145) mEq/L Potassium 3.6 (3.5-4.5) mEq/L Chloride 102 (98-109) mEq/L Carbon Dioxide 24 (19-29) mEq/L BUN 11 (8-26) mg/dL Creatinine 0.71 L (0.72-1.25) mg/dL Glucose 109 H (70-99) mg/dL Calcium 7.8 L (8.6-10.8) mg/dL All other labs normal. Consult Discharge Plan - Plan Referrals: Carlos Danielle Jr, MD [Primary Care Provider] -
--- NOTE | 2017-01-29 13:34 | Internal Med Progress Note ---
Date of Encounter: 01/29/17 Time of Encounter: 13:31 - Assessment and plan (1) Bacteremia Current Visit: Yes Status: Acute Assessment and plan: blood cx growing gram negative iris, has been started on IV ceftriaxone. Patient feels better today, less chills, no fever at this time. We will follow up final culture results, repeat blood culture has been sent. Patient will need to go home on IV antibiotics given bacteremia. will get power glide placed. Unclear source at this time, ua seems clear, chest x-ray shows no pneumonia. wait final cx results, will send home with 10 days of IV antibiotics after repeat negative blood cx. (2) Nausea vomiting and diarrhea Current Visit: Yes Status: Acute Assessment and plan: improved. abd ct shows no obstruction, moving bowels part of his symptoms may be 2/2 bacteremia. surgery following, has large ventral hernia. no surgical intervention for now (3) Afib Current Visit: No Status: Chronic Assessment and plan: stable, continue home meds Qualifiers: Atrial fibrillation type: chronic Qualified Code(s): I48.2 - Chronic atrial fibrillation (4) CAD (coronary artery disease) Current Visit: No Status: Chronic Assessment and plan: continue home meds Qualifiers: Coronary Disease-Associated Artery/Lesion type: [place] artery [place] vs. transplanted heart: [place] heart Associated angina: without angina Qualified Code(s): I25.10 - Atherosclerotic heart disease of [place] coronary artery without angina pectoris (5) HLD (hyperlipidemia) Current Visit: No Status: Chronic Assessment and plan: continue home meds Qualifiers: Hyperlipidemia type: unspecified Qualified Code(s): E78.5 - Hyperlipidemia , unspecified - Time Spent With Patient 25 - 35 minutes - Subjective Interval history: stephenie admitted for chills, n/v h/o mulitple surgeries in skip past, recently admitted on nov 2016 for SBO currently passing gas and moving his bowels, denies any abdominal pain. nausea and chills has improved no h/o IV lines, indwelling catheters, bedsores, dental caries. he denies any urinary symptoms as well. - Constitutional Vitals: Temp Pulse Resp BP Pulse Ox 98.5 F 68 16 115/69 95 01/29/17 10:58 01/29/17 10:58 01/29/17 10:58 01/29/17 10:58 01/29/17 10:58 General appearance: Present: A&O X 3, morbidly obese Exam: - Eye Eye exam: Present: PERRL, conjuntiva pink, sclera anicteric Pupils: Present: PERRL - Neck Neck exam general surgery: Present: supple, trachea midline. Absent: lymphadenopathy - Respiratory Respiratory exam: Present: CTAB. Absent: accessory muscle use, rales, rhonchi, wheezes - Cardiovascular Cardiovascular exam: Present: RRR, +S1, +S2. Absent: diastolic murmur, gallop, rubs, systolic murmur - GI/Abdominal GI/Abdominal exam: Present: hernia, normal bowel sounds, soft, no peritoneal signs. Absent: distended, tenderness - Extremities Exam Extremities exam: Present: warm, radial pulses palpable and symetrical. Absent : calf tenderness, cyanotic, pedal edema - Neurological Exam Neurological exam: Present: CN II-XII intact, oriented X3, no focal deficits. Absent: pronater drift, facial droop, speech deficit - Skin Skin exam: Present: dry, intact Internal Medicine: Result - Labs CBC & Chem 7: 01/29/17 04:04 01/29/17 04:04 Labs: Short CBC 01/29/17 Range/Units 04:04 WBC 11.1 (4.3-11.1) K/mcL Hgb 12.4 L (12.9-16.9) g/dL Hct 38.1 (37.5-50.1) % Plt Count 132 L (140-400) K/mcL Neutrophils # 9.1 H (1.6-8.9) K/mcL BMP 01/29/17 04:04 Sodium 134 L Potassium 3.6 Chloride 102 Carbon Dioxide 24 BUN 11 Creatinine 0.71 L Glucose 109 H Calcium 7.8 L Consult Discharge Plan - Plan Referrals: Carlos Danielle Jr, MD [Primary Care Provider] -
[2017-01-30] MEDS: *HR* Enoxaparin 40 MG/0.4 ML SYRINGE SQ SCH (06:20)
[2017-01-30] MEDS: Aspirin 81 MG TAB.CHEW PO SCH (08:44)
[2017-01-30] MEDS: Finasteride 5 MG TABLET PO SCH (08:44)
[2017-01-30] MEDS: Lactobacillus 1 EACH CAP.SPRINK PO SCH ×2 (08:44→19:56)
--- NOTE | 2017-01-30 10:51 | Internal Med Progress Note ---
Date of Encounter: 01/30/17 Time of Encounter: 10:48 - Assessment and plan (1) Bacteremia Current Visit: Yes Status: Acute Assessment and plan: blood cx 01/27 to Klebsiella oxytoca which is sensitive to ceftriaxone, has been started on IV ceftriaxone. Patient feels better today, less chills, no fever at this time. Blood culture was repeated on 01/28, still growing gram-negative iris. We will repeat blood culture today. Patient will need to go home on IV antibiotics given bacteremia. power glide placed. Unclear source at this time, ua seems clear, chest x-ray shows no pneumonia. wait final cx results, will send home with 10 days of IV antibiotics after repeat negative blood cx. (2) Nausea vomiting and diarrhea Current Visit: Yes Status: Acute Assessment and plan: improved. abd ct shows no obstruction, moving bowels part of his symptoms may be 2/2 bacteremia. surgery following, has large ventral hernia. no surgical intervention for now (3) Afib Current Visit: No Status: Chronic Assessment and plan: stable, continue home meds Qualifiers: Atrial fibrillation type: chronic Qualified Code(s): I48.2 - Chronic atrial fibrillation (4) CAD (coronary artery disease) Current Visit: No Status: Chronic Assessment and plan: continue home meds Qualifiers: Coronary Disease-Associated Artery/Lesion type: [place] artery [place] vs. transplanted heart: [place] heart Associated angina: without angina Qualified Code(s): I25.10 - Atherosclerotic heart disease of [place] coronary artery without angina pectoris (5) HLD (hyperlipidemia) Current Visit: No Status: Chronic Assessment and plan: continue home meds Qualifiers: Hyperlipidemia type: unspecified Qualified Code(s): E78.5 - Hyperlipidemia , unspecified - Time Spent With Patient 25 - 35 minutes - Subjective Interval history: stephenie admitted for chills, n/v h/o mulitple surgeries in skip past, recently admitted on nov 2016 for SBO currently passing gas and moving his bowels, denies any abdominal pain. nausea and chills has improved, currently being treated for bacteremia. no h/o IV lines, indwelling catheters, bedsores, dental caries. he denies any urinary symptoms as well. - Constitutional Vitals: Temp Pulse Resp BP Pulse Ox 97.5 F L 62 18 111/69 96 01/30/17 08:13 01/30/17 08:13 01/30/17 08:13 01/30/17 08:13 01/30/17 08:13 General appearance: Present: A&O X 3, morbidly obese Exam: - Eye Eye exam: Present: PERRL, conjuntiva pink, sclera anicteric Pupils: Present: PERRL - Neck Neck exam general surgery: Present: supple, trachea midline. Absent: lymphadenopathy - Respiratory Respiratory exam: Present: CTAB. Absent: accessory muscle use, rales, rhonchi, wheezes - Cardiovascular Cardiovascular exam: Present: RRR, +S1, +S2. Absent: diastolic murmur, gallop, rubs, systolic murmur - GI/Abdominal GI/Abdominal exam: Present: hernia, normal bowel sounds, soft, no peritoneal signs. Absent: distended, tenderness - Extremities Exam Extremities exam: Present: warm, radial pulses palpable and symetrical. Absent : calf tenderness, cyanotic, pedal edema - Neurological Exam Neurological exam: Present: CN II-XII intact, oriented X3, no focal deficits. Absent: pronater drift, facial droop, speech deficit - Skin Skin exam: Present: dry, intact Internal Medicine: Result - Labs CBC & Chem 7: 01/29/17 04:04 01/29/17 04:04 Consult Discharge Plan - Plan Referrals: Carlos Danielle Jr, MD [Primary Care Provider] -
--- NOTE | 2017-01-30 17:03 | General Surgery Progress Note ---
Date of Encounter: 01/30/17 Time of Encounter: 16:00 Subjective Patient reports: no new complaints, feels better Narrative: General Surgery: patient feeling well, denies any abdominal pain. No nausea or vomiting. Afebrile, 98.2; pulse 70, respirations 18-20; blood pressure 115/71; SPO2 on room air 97% Abdomen: Protuberant but soft, nontender. Ventral incisional hernia soft, nontender. No obvious incarcerated tissue. No obvious intra-abdominal masses. No rebound. Blood cultures: Klebsiella oxytoca sensitive to all antibiotics except ampicillin, ampicillin/sulbactam, cefazolin Repeat cultures drawn, results pending Impression: 86-year-old male with recurrent abdominal pain, nausea, vomiting. Both episodes with radiographic evidence SBO due to ventral incisional hernia containing several loops of bowel (small and large bowel dependent on the CT reviewed). The episodes also correspond to a colonoscopy completed the day before with possible dehydration related to the mechanical bowel prep and more recently bacteremia related to Klebsiella oxytoca. Patient doing well this hospitalization. Continue Ceftriaxone until repeat blood cultures demonstrate no further infection and continue oral antibiotics as appropriate once discharged home. Follow up with me 7-10 days post discharge. Objective Vital Signs - Last 8 Hours Temp Pulse Resp BP Pulse Ox 01/30/17 15:35 98.2 F 70 20 115/71 97 01/30/17 12:26 97.5 F L 57 18 125/80 98 Intake and Output 01/30/17 01/30/17 01/30/17 07:59 15:59 23:59 Intake Total 100 / 100 560 / 560 Output Total 400 / 400 350 / 350 Balance -300 / -300 210 / 210 Intake: IV Fluids 100 / 100 Rocephin 2,000 MG In 100 / 100 Dextrose 5% (Minibag+) 100 ML 100 ML @ 200 mls/ hr IVPB Q24H [facility] Rx#: [id number] Oral 560 / 560 Output: Urine 400 / 400 350 / 350 Other: Meal Lunch Percent of Meal Consumed 40% Weight 93.1 kg Patient Weight 01/30/17 23:59 Weight 93.1 kg - Labs 01/29/17 04:04 01/29/17 04:04 Consult Discharge Plan - Plan Referrals: Carlos Danielle Jr, MD [Primary Care Provider] -
[2017-01-31] MEDS: *HR* Enoxaparin 40 MG/0.4 ML SYRINGE SQ SCH (05:03)
[2017-01-31] MEDS: Lactobacillus 1 EACH CAP.SPRINK PO SCH ×2 (07:27→20:14)
[2017-01-31] MEDS: Finasteride 5 MG TABLET PO SCH (07:27)
[2017-01-31] MEDS: Aspirin 81 MG TAB.CHEW PO SCH (07:28)
--- NOTE | 2017-01-31 09:58 | Internal Med Progress Note ---
Date of Encounter: 01/31/17 Time of Encounter: 09:57 - Assessment and plan (1) Bacteremia Current Visit: Yes Status: Acute Assessment and plan: blood cx 01/27 to Klebsiella oxytoca which is sensitive to ceftriaxone, has been started on IV ceftriaxone. Patient feels better today, less chills, no fever at this time. Blood culture was repeated on 01/28, still growing gram-negative iris. repeat blood cx sent yesterday. Patient will need to go home on IV antibiotics given bacteremia. power glide placed. Unclear source at this time, ua seems clear, chest x-ray shows no pneumonia. wait final cx results, will send home with 10 days of IV antibiotics after repeat negative blood cx. (2) Nausea vomiting and diarrhea Current Visit: Yes Status: Acute Assessment and plan: improved. abd ct shows no obstruction, moving bowels part of his symptoms may be 2/2 bacteremia. surgery following, has large ventral hernia. no surgical intervention for now (3) Afib Current Visit: No Status: Chronic Assessment and plan: stable, continue home meds Qualifiers: Atrial fibrillation type: chronic Qualified Code(s): I48.2 - Chronic atrial fibrillation (4) CAD (coronary artery disease) Current Visit: No Status: Chronic Assessment and plan: continue home meds Qualifiers: Coronary Disease-Associated Artery/Lesion type: [place] artery [place] vs. transplanted heart: [place] heart Associated angina: without angina Qualified Code(s): I25.10 - Atherosclerotic heart disease of [place] coronary artery without angina pectoris (5) HLD (hyperlipidemia) Current Visit: No Status: Chronic Assessment and plan: continue home meds Qualifiers: Hyperlipidemia type: unspecified Qualified Code(s): E78.5 - Hyperlipidemia , unspecified - Time Spent With Patient 25 - 35 minutes - Subjective Interval history: stephenie admitted for chills, n/v h/o mulitple surgeries in skip past, recently admitted on nov 2016 for SBO currently passing gas and moving his bowels, denies any abdominal pain. nausea and chills has improved, currently being treated for bacteremia. no h/o IV lines, indwelling catheters, bedsores, dental caries. he denies any urinary symptoms as well. - Constitutional Vitals: Temp Pulse Resp BP Pulse Ox 97.5 F L 67 16 108/64 93 L 01/31/17 08:14 01/31/17 08:14 01/31/17 08:14 01/31/17 08:14 01/31/17 08:14 General appearance: Present: A&O X 3, morbidly obese Exam: - Eye Eye exam: Present: PERRL, conjuntiva pink, sclera anicteric Pupils: Present: PERRL - Neck Neck exam general surgery: Present: supple, trachea midline. Absent: lymphadenopathy - Respiratory Respiratory exam: Present: CTAB. Absent: accessory muscle use, rales, rhonchi, wheezes - Cardiovascular Cardiovascular exam: Present: RRR, +S1, +S2. Absent: diastolic murmur, gallop, rubs, systolic murmur - GI/Abdominal GI/Abdominal exam: Present: hernia, normal bowel sounds, soft, no peritoneal signs. Absent: distended, tenderness - Extremities Exam Extremities exam: Present: warm, radial pulses palpable and symetrical. Absent : calf tenderness, cyanotic, pedal edema - Neurological Exam Neurological exam: Present: CN II-XII intact, oriented X3, no focal deficits. Absent: pronater drift, facial droop, speech deficit - Skin Skin exam: Present: dry, intact Internal Medicine: Result - Labs CBC & Chem 7: 01/29/17 04:04 01/29/17 04:04 Consult Discharge Plan - Plan Referrals: Carlos Danielle Jr, MD [Primary Care Provider] -
--- NOTE | 2017-01-31 17:20 | General Surgery Progress Note ---
Date of Encounter: 01/31/17 Time of Encounter: 13:00 Subjective Patient reports: no new complaints Narrative: This is a delayed note General Surgery - patient feels well, voicing no complaints. No recurrent abdominal pain, N/V. Repeat blood cultures pending - patient anxious to be discharged but understands the importance of the blood cultures See my previous progress note(s) as my recommendations remain the same. Objective Vital Signs - Last 8 Hours Temp Pulse Resp BP Pulse Ox 01/31/17 15:40 97.3 F L 63 18 115/72 96 01/31/17 12:22 97.7 F 66 18 108/63 96 Intake and Output 01/31/17 01/31/17 01/31/17 07:59 15:59 23:59 Intake Total 1320 / 1320 Output Total 0 / 0 Balance 1320 / 1320 Intake: IV Fluids Rocephin 2,000 MG In Dextrose 5% (Minibag+) 100 ML 100 ML @ 200 mls/ hr IVPB Q24H [facility] Rx#: [id number] Oral 1320 / 1320 Output: Urine 0 / 0 Other: Meal Lunch Percent of Meal Consumed 75% Weight Patient Weight 02/01/17 00:59 Weight 88 kg - Labs 01/29/17 04:04 01/29/17 04:04 Consult Discharge Plan - Plan Referrals: Carlos Danielle Jr, MD [Primary Care Provider] -
[2017-02-01] MEDS: *HR* Enoxaparin 40 MG/0.4 ML SYRINGE SQ SCH (05:50)
[2017-02-01] MEDS: Finasteride 5 MG TABLET PO SCH (08:28)
[2017-02-01] MEDS: Aspirin 81 MG TAB.CHEW PO SCH (08:28)
[2017-02-01] MEDS: Lactobacillus 1 EACH CAP.SPRINK PO SCH (08:28)
[2017-02-01] MEDS ORDERED: Nystatin SUSP 5 ML UD.LIQ PO SCH (09:00)
--- NOTE | 2017-02-01 10:30 | Discharge Summary ---
Date of Encounter: 02/01/17 Time of Encounter: 10:23 - Discharge Diagnosis (1) Bacteremia Priority: Primary Status: Acute (2) Nausea vomiting and diarrhea Priority: Primary Status: Acute (3) Afib Priority: Secondary Status: Chronic Qualifiers: Atrial fibrillation type: chronic Qualified Code(s): I48.2 - Chronic atrial fibrillation (4) CAD (coronary artery disease) Priority: Secondary Status: Chronic Qualifiers: Coronary Disease-Associated Artery/Lesion type: [place] artery [place] vs. transplanted heart: [place] heart Associated angina: without angina Qualified Code(s): I25.10 - Atherosclerotic heart disease of [place] coronary artery without angina pectoris (5) HLD (hyperlipidemia) Priority: Secondary Status: Chronic Qualifiers: Hyperlipidemia type: unspecified Qualified Code(s): E78.5 - Hyperlipidemia , unspecified - Discharge Medications Prescriptions: CefTRIAXone [Rocephin] 2,000 mg IVPB DAILY #10 vial Nystatin [Nystatin Suspension] 100,000 units PO QID #120 ml Home Medications: Aspirin 81 mg PO DAILY 12/04/16 [History] Atorvastatin Calcium [Lipitor] 20 mg PO HS 12/04/16 [History] Tamsulosin [Flomax] 0.4 mg PO DAILY 12/04/16 [History] Clopidogrel [Plavix] 75 mg PO DAILY 12/05/16 [History] Finasteride [Proscar] 5 mg PO DAILY 12/05/16 [History] CefTRIAXone [Rocephin] 2,000 mg IVPB DAILY #10 vial 02/01/17 [Rx] Nystatin [Nystatin Suspension] 100,000 units PO QID #120 ml 02/01/17 [Rx] Allergies/Adverse Reactions: Allergies phenobarbital Allergy (Verified 01/27/17 10:20) Rash Date of admission: 01/27/17 19:31 Primary care physician: Carlos Danielle Jr, MD Discharging clinician: Jyoti Lopez date of discharge: 02/01/17 - Patient Status Disposition: Home Health Service Condition: Fair Functional capacity at discharge: independent ambulation Overall status at discharge: patient is back to baseline - Discharge Instructions Follow Up With: Mamta Kim CNP [Advanced Practice Nurse] - 02/08/17 9:40 am - Diet and Activity Activity: resume usual activities as tolerated Diet: advance to your usual diet Interval History: Mr. Phelps is a 86 year old male past medical history of atrial fibrillation hypertension coronary artery disease with 2 stents and colon cancer. He has a large abdominal hernia from multiple surgeries in the past. The patient was recently admitted to the hospital in November 2016 with small bowel obstruction. He was discharged the patient states since his discharge she has been experiencing intermittent abdominal cramping nausea vomiting and diarrhea, chills . CT of abdomen with no evidence of bowel obstruction his lab work did reveal a elevated white count 13.4 on 12/19/16 white count was 9.9. He is afebrile temperature 98.5 heart rate 68 pressure 122/72. further lab work revealed gram negative bacteremia for which he was empirically started on IV antibiotics. Repeat blood cultures were drawn, he improved clinically on IV antibiotics, there was no fever or chills, nausea and vomiting improved. Dr. alcantara was also consulted for his GI symptoms, however no surgical intervention was recommended at this time has he is currently stable with his symptoms improved. Unclear source at this time, ua seems clear, chest x-ray shows no pneumonia. blood cx finally grew klebsiella oxytocica, repeat blood cx has been negative. will dc today on IV ceftriaxone for 10 days. patient is to follow up with his PCP as OP. Hospital course: Mr. Phelps is a 86 year old male Time spent discussing smoking cessation with patient: more than 10 minutes - Time Spent with Patient Total time spent providing and/or coordinating discharge services: Greater than 30 minutes - Constitutional Vitals: Temp Pulse Resp BP Pulse Ox 97.3 F L 82 15 128/80 96 02/01/17 05:16 02/01/17 05:16 02/01/17 05:16 02/01/17 05:16 02/01/17 07:00 General appearance: Present: A&O X 3, morbidly obese Exam: - Eye Eye exam: Present: PERRL, conjuntiva pink, sclera anicteric Pupils: Present: PERRL - Neck Neck exam general surgery: Present: supple, trachea midline. Absent: lymphadenopathy - Respiratory Respiratory exam: Present: CTAB. Absent: accessory muscle use, rales, rhonchi, wheezes - Cardiovascular Cardiovascular exam: Present: RRR, +S1, +S2. Absent: diastolic murmur, gallop, rubs, systolic murmur - GI/Abdominal GI/Abdominal exam: Present: hernia, normal bowel sounds, soft, no peritoneal signs. Absent: distended, tenderness - Extremities Exam Extremities exam: Present: warm, radial pulses palpable and symetrical. Absent : calf tenderness, cyanotic, pedal edema - Neurological Exam Neurological exam: Present: CN II-XII intact, oriented X3, no focal deficits. Absent: pronater drift, facial droop, speech deficit - Skin Skin exam: Present: dry, intact
[2017-02-01 11:29] VITALS: BP 107/69
--- NOTE | 2017-02-02 08:36 | Physician Discharge Referral ---
Home Health/Hosp Referral Info Transfer to: Home Health Attending Provider: abhinav ware - Diagnosis (1) Bacteremia Status: Acute (2) Nausea vomiting and diarrhea Status: Acute (3) Afib Status: Chronic (4) CAD (coronary artery disease) Status: Chronic (5) HLD (hyperlipidemia) Status: Chronic - Respiratory Orders Smoking Cessation: Smoking cessation has been advised. For more information, call the [employer] Tobacco Quit Line at 9-261-IWCP-NOW. - Diet/Nutrition Diet/Nutrition Orders: Regular - Activity Activity Orders: Up ad janes, Ambulate - Services Needed Following services are medically necessary services: Nursing, Home Health Aide, Home Infusion - Transfer Medications Prescriptions: CefTRIAXone [Rocephin] 2,000 mg IVPB DAILY #10 vial Nystatin [Nystatin Suspension] 100,000 units PO QID #120 ml Home Medications: Aspirin 81 mg PO DAILY 12/04/16 [History] Atorvastatin Calcium [Lipitor] 20 mg PO HS 12/04/16 [History] Tamsulosin [Flomax] 0.4 mg PO DAILY 12/04/16 [History] Clopidogrel [Plavix] 75 mg PO DAILY 12/05/16 [History] Finasteride [Proscar] 5 mg PO DAILY 12/05/16 [History] CefTRIAXone [Rocephin] 2,000 mg IVPB DAILY #10 vial 02/01/17 [Rx] Nystatin [Nystatin Suspension] 100,000 units PO QID #120 ml 02/01/17 [Rx] Allergies/Adverse Reactions: Allergies phenobarbital Allergy (Verified 01/27/17 10:20) Rash Certification: Further, I certify that my clinical findings support that this patient is homebound (i.e. absences from home require considerable and taxing effort and are for medical reasons or confucianist services or infrequently or short duration when for other reasons) because: Homebound Reason: Patient requires assistance of a person or device to safely leave home Attestation: My signature below is to certify that this patient is under my care and that I, or nurse practitioner, or a physician's program services assistant working with me, has a face-to -face encounter with this patient.
== END 2017-02-01 13:18 | disposition home health service (06) | DRG 872 ==
LOC: EMEROO 10:11 → 3ANU 10:11 → SUATTDRO 19:31
PROVIDERS: ADMIT Internal Medicine; ATTEND Internal Medicine Endocrinology, Diabetes & Metabolism

== ENCOUNTER 2020-03-22 02:28 | Inpatient (IN) ==
[2020-03-22 03:04] LABS: Basophils % 0.3 %; Hematocrit 50.7 % (37.5-50.1); Hemoglobin 16.2 g/dL (12.9-16.9); Immature Granulocytes % 0.4 % (0-4); Lymphocytes # 0.4 K/mcL (0.6-4.6); Lymphocytes % 3.3 %; Mean Corpuscular Hemoglobin 29.8 pg (28.0-33.3); Mean Corpuscular Volume 93.2 fL (83.0-100.0); Monocytes # 0.7 K/mcL (0.0-1.3); Monocytes % 5.9 %; Neutrophils # 10.6 K/mcL (1.6-8.9); Platelet Count 254 K/mcL (140-400); Red Blood Count 5.44 M/mcL (4.19-5.50); Red Cell Distribution Width 13.5 % (11.5-14.5); Segmented Neutrophils % 90.1 %; White Blood Count 11.7 K/mcL (4.3-11.1)
[2020-03-22 03:08] LABS: INR 1.6; Prothrombin Time 17.9 Seconds (9.4-12.1)
[2020-03-22 03:11] LABS: Activated Partial Thrombo Time 36.9 Seconds (26.0-36.0)
[2020-03-22] MEDS ORDERED: cefTRIAXone 1,000 MG in Water for inj. (sterile) 10 ML IVP ONE (03:25)
[2020-03-22] MEDS ORDERED: Azithromycin 500 MG in 0.9 % Sodium Chloride 250 ML IVPB ONE (03:26)
[2020-03-22 03:33] LABS: Alanine Aminotransferase 43 Units/L (7-52); Albumin 3.8 g/dL (3.5-5.7); Albumin/Globulin Ratio 1.2 (1.1-2.2); Alkaline Phosphatase 120 Units/L (34-104); Aspartate Amino Transferase 39 Units/L (13-39); BUN/Creatinine Ratio 18 (6-26); Bilirubin,Direct 0.3 mg/dL (0.0-0.2); Bilirubin,Total 1.3 mg/dL (0.3-1.0); Blood Urea Nitrogen 16 mg/dL (8-23); C-Reactive Protein 27 mg/L (Less than 10); Calcium 9.4 mg/dL (8.6-10.3); Carbon Dioxide 26 mEq/L (23-29); Chloride 100 mEq/L (98-107); Globulin 3.2 g/dL (2.4-3.5); Glucose 123 mg/dL (70-105); Lactate Dehydrogenase 164 Units/L (140-271); Magnesium 1.9 mg/dL (1.6-2.6); Osmolality,Calculated 283 (280-300); Phosphorous 4.5 mg/dL (2.7-4.5); Potassium 4.7 mEq/L (3.5-5.1); Sodium 135 mEq/L (136-145); Troponin I 0.18 ng/mL (< 0.04); eGFR For African Americans > 60 (> 60); eGFR For Non-African Americans > 60 (> 60)
[2020-03-22 03:45] LABS: Ferritin 133 ng/mL (20-250)
[2020-03-22] MEDS ORDERED: Aspirin 325 MG TABLET PO ONE (04:13)
[2020-03-22] MEDS ORDERED: Naloxone 0.4 MG/ML INJ IVP PRN (05:59)
[2020-03-22] MEDS: Ipratropium 1 PUFF INHALER IH SCH ×5 (07:56→23:11)
[2020-03-22 08:08] LABS: ABG Base Excess 4 mEq/L (-2 to 3); ABG HCO3 33 mEq/L (21-27); ABG Oxygen Saturation 94 % (95-98); ABG PCO2 62 mmHg (35-45); ABG PH 7.33 pH Units (7.32-7.45); ABG PO2 78 mmHg (85-104); ABG TCO2 35 mEq/L (20-26)
[2020-03-22] MEDS ORDERED: Apixaban 5 MG TABLET PO SCH (09:00)
[2020-03-22] MEDS: Piperacillin/Tazobactam 3.375 GM in 0.9 % Sodium Chloride Mini Bag 100 ML IVPB SCH ×3 (10:25→23:20)
[2020-03-22] MEDS ORDERED: Isovue-370 500 ML BOTTLE IVP ONE (11:28)
[2020-03-22] MEDS: Doxycycline 100 MG in 0.9 % Sodium Chloride 250 ML IVPB SCH ×2 (11:35→20:08)
[2020-03-22 12:30] LABS: Bilirubin,Urine Moderate (Negative); Blood,Urine Negative (Negative); Clarity,Urine Clear (Clear); Color,Urine Orange (Yellow); Glucose,Urine (UA) Normal (Normal); Ketones,Urine Trace mg/dL (Negative); Leukocyte Esterase,Urine Trace (Negative); Nitrite,Urine Negative (Negative); PH,Urine 5.5 pH Units (5.0-8.0); Protein,Urine 30 mg/dL (Neg-Trace); Specific Gravity,Urine > 1.030 (1.010-1.025); Urobilinogen,Urine Normal (Normal)
[2020-03-22 12:33] LABS: Bacteria,Urine None Seen per hpf (None-Few); RBC,Urine 0-3 per hpf (0-3); Squamous Epithelial Cell,Urine Many per lpf (None-Few)
[2020-03-22 12:41] LABS: Mucus,Urine Few per lpf (Few)
[2020-03-22 12:42] LABS: Hyaline Casts,Urine Few per lpf (None-Few)
[2020-03-22] MEDS ORDERED: Ondansetron 4 MG/2 ML VIAL IVP PRN (18:31)
[2020-03-23] MEDS: Ipratropium 1 PUFF INHALER IH SCH ×6 (03:27→23:21)
[2020-03-23] MEDS ORDERED: cefTRIAXone 1,000 MG in Water for inj. (sterile) 10 ML IVP SCH (04:00)
[2020-03-23] MEDS ORDERED: Azithromycin 500 MG in D5% in Water 250 ML IVPB SCH (04:00)
[2020-03-23 06:39] LABS: Basophils % 0.4 %; Hematocrit 50.6 % (37.5-50.1); Hemoglobin 15.8 g/dL (12.9-16.9); Immature Granulocytes % 0.6 % (0-4); Lymphocytes # 0.2 K/mcL (0.6-4.6); Lymphocytes % 1.7 %; Mean Corpuscular HGB Conc 31.2 g/dL (31.6-35.5); Mean Corpuscular Volume 96.2 fL (83.0-100.0); Mean Platelet Volume 10.9 fL (9.4-12.4); Monocytes # 0.7 K/mcL (0.0-1.3); Monocytes % 6.5 %; Neutrophils # 9.9 K/mcL (1.6-8.9); Platelet Count 207 K/mcL (140-400); Red Blood Count 5.26 M/mcL (4.19-5.50); Red Cell Distribution Width 13.4 % (11.5-14.5); Segmented Neutrophils % 90.8 %; White Blood Count 10.9 K/mcL (4.3-11.1)
[2020-03-23 06:58] LABS: BUN/Creatinine Ratio 21 (6-26); Blood Urea Nitrogen 14 mg/dL (8-23); Calcium 9.1 mg/dL (8.6-10.3); Carbon Dioxide 29 mEq/L (23-29); Chloride 101 mEq/L (98-107); Glucose 130 mg/dL (70-105); Osmolality,Calculated 286 (280-300); Potassium 4.6 mEq/L (3.5-5.1); Sodium 137 mEq/L (136-145); eGFR For African Americans > 60 (> 60); eGFR For Non-African Americans > 60 (> 60)
[2020-03-23 07:57] LABS: Platelet Estimate Normal (Normal)
[2020-03-23] MEDS: Piperacillin/Tazobactam 3.375 GM in 0.9 % Sodium Chloride Mini Bag 100 ML IVPB SCH ×3 (08:34→22:59)
[2020-03-23] MEDS: Finasteride 5 MG TABLET PO SCH (08:34)
[2020-03-23] MEDS: Doxycycline 100 MG in 0.9 % Sodium Chloride 250 ML IVPB SCH ×2 (08:35→19:41)
[2020-03-23] MEDS ORDERED: Furosemide 20 MG/2 ML VIAL IVP ONE (10:16)
[2020-03-23] MEDS: MethylPREDNISolone 40 MG/ML VIAL IVP SCH ×3 (10:52→22:58)
[2020-03-23] MEDS: *HR* Heparin 5,000 UNIT/ML VIAL SQ SCH (17:05)
[2020-03-23] MEDS ORDERED: Furosemide 40 MG/4 ML VIAL IVP ONE (19:57)
[2020-03-23] MEDS: Melatonin 3 MG TABLET PO PRN (22:58)
[2020-03-24 00:05] LABS: ABG Base Excess 10 mEq/L (-2 to 3); ABG HCO3 40 mEq/L (21-27); ABG Oxygen Saturation 84 % (95-98); ABG PCO2 72 mmHg (35-45); ABG PH 7.35 pH Units (7.32-7.45); ABG PO2 54 mmHg (85-104); ABG TCO2 42 mEq/L (20-26)
[2020-03-24 03:07] LABS: Basophils % 0.1 %; Hemoglobin 15.5 g/dL (12.9-16.9); Immature Granulocytes % 0.7 % (0-4); Lymphocytes # 0.2 K/mcL (0.6-4.6); Lymphocytes % 2.4 %; Mean Corpuscular HGB Conc 31.6 g/dL (31.6-35.5); Mean Corpuscular Hemoglobin 29.8 pg (28.0-33.3); Mean Corpuscular Volume 94.2 fL (83.0-100.0); Mean Platelet Volume 10.7 fL (9.4-12.4); Monocytes # 0.1 K/mcL (0.0-1.3); Monocytes % 1.9 %; Neutrophils # 6.4 K/mcL (1.6-8.9); Platelet Count 179 K/mcL (140-400); Segmented Neutrophils % 94.9 %; White Blood Count 6.7 K/mcL (4.3-11.1)
[2020-03-24] MEDS: Ipratropium 1 PUFF INHALER IH SCH ×6 (03:24→23:43)
[2020-03-24 03:27] LABS: BUN/Creatinine Ratio 19 (6-26); Blood Urea Nitrogen 13 mg/dL (8-23); Calcium 9.3 mg/dL (8.6-10.3); Carbon Dioxide 39 mEq/L (23-29); Chloride 97 mEq/L (98-107); Glucose 149 mg/dL (70-105); Magnesium 1.8 mg/dL (1.6-2.6); Osmolality,Calculated 287 (280-300); Phosphorous 2.3 mg/dL (2.7-4.5); Potassium 3.9 mEq/L (3.5-5.1); Sodium 137 mEq/L (136-145); eGFR For African Americans > 60 (> 60); eGFR For Non-African Americans > 60 (> 60)
[2020-03-24] MEDS: *HR* Heparin 5,000 UNIT/ML VIAL SQ SCH (04:36)
[2020-03-24] MEDS: Piperacillin/Tazobactam 3.375 GM in 0.9 % Sodium Chloride Mini Bag 100 ML IVPB SCH ×3 (07:44→23:08)
[2020-03-24] MEDS: Doxycycline 100 MG in 0.9 % Sodium Chloride 250 ML IVPB SCH ×2 (07:45→20:14)
[2020-03-24] MEDS: MethylPREDNISolone 40 MG/ML VIAL IVP SCH ×3 (07:45→23:08)
[2020-03-24] MEDS: Finasteride 5 MG TABLET PO SCH (07:45)
[2020-03-24] MEDS ORDERED: Aminoglycoside Consult 1 EACH MC ONE (08:57)
[2020-03-24] MEDS ORDERED: Furosemide 20 MG/2 ML VIAL IVP ONE (17:07)
[2020-03-24] MEDS: Melatonin 3 MG TABLET PO PRN (20:15)
[2020-03-24] MEDS: Apixaban 5 MG TABLET PO SCH (20:15)
[2020-03-25] MEDS: Ipratropium 1 PUFF INHALER IH SCH ×6 (04:02→23:41)
[2020-03-25 05:10] LABS: Basophils # 0.1 K/mcL (0.0-0.2); Basophils % 0.4 %; Hematocrit 46.3 % (37.5-50.1); Hemoglobin 14.9 g/dL (12.9-16.9); Immature Granulocytes % 1.6 % (0-4); Lymphocytes # 0.1 K/mcL (0.6-4.6); Mean Corpuscular HGB Conc 32.2 g/dL (31.6-35.5); Mean Corpuscular Hemoglobin 29.8 pg (28.0-33.3); Mean Corpuscular Volume 92.6 fL (83.0-100.0); Monocytes # 0.4 K/mcL (0.0-1.3); Monocytes % 3.3 %; Neutrophils # 11.8 K/mcL (1.6-8.9); Platelet Count 212 K/mcL (140-400); Red Cell Distribution Width 13.1 % (11.5-14.5); Segmented Neutrophils % 93.7 %
[2020-03-25 05:12] LABS: White Blood Count 12.6 K/mcL (4.3-11.1)
[2020-03-25 05:25] LABS: Platelet Estimate Normal (Normal)
[2020-03-25 05:31] LABS: BUN/Creatinine Ratio 28 (6-26); Blood Urea Nitrogen 21 mg/dL (8-23); Carbon Dioxide 34 mEq/L (23-29); Chloride 100 mEq/L (98-107); Glucose 142 mg/dL (70-105); Osmolality,Calculated 289 (280-300); Potassium 3.9 mEq/L (3.5-5.1); Sodium 137 mEq/L (136-145); eGFR For African Americans > 60 (> 60); eGFR For Non-African Americans > 60 (> 60)
[2020-03-25] MEDS: MethylPREDNISolone 40 MG/ML VIAL IVP SCH (07:19)
[2020-03-25] MEDS: Piperacillin/Tazobactam 3.375 GM in 0.9 % Sodium Chloride Mini Bag 100 ML IVPB SCH (07:19)
[2020-03-25] MEDS ORDERED: Furosemide 20 MG/2 ML VIAL IVP ONE (08:05)
[2020-03-25] MEDS: Finasteride 5 MG TABLET PO SCH (08:05)
[2020-03-25] MEDS: Apixaban 5 MG TABLET PO SCH ×2 (08:05→20:13)
[2020-03-25] MEDS ORDERED: levoFLOXacin 750 MG TABLET PO SCH (09:00)
[2020-03-25] MEDS: Sennosides/Docusate Sodium TABLET PO SCH ×2 (11:30→20:13)
[2020-03-25] MEDS: Melatonin 3 MG TABLET PO PRN (20:13)
[2020-03-25] MEDS ORDERED: GuaiFENesin Liq 200 MG/10 ML UDC PO PRN (21:52)
[2020-03-26] MEDS: Ipratropium 1 PUFF INHALER IH SCH ×7 (03:24→23:16)
[2020-03-26 07:10] LABS: Basophils % 0.2 %; Hematocrit 47.2 % (37.5-50.1); Hemoglobin 15.5 g/dL (12.9-16.9); Immature Granulocytes % 0.9 % (0-4); Lymphocytes # 0.4 K/mcL (0.6-4.6); Lymphocytes % 3.2 %; Mean Corpuscular HGB Conc 32.8 g/dL (31.6-35.5); Mean Corpuscular Hemoglobin 29.9 pg (28.0-33.3); Mean Corpuscular Volume 90.9 fL (83.0-100.0); Mean Platelet Volume 10.8 fL (9.4-12.4); Monocytes # 0.9 K/mcL (0.0-1.3); Monocytes % 7.2 %; Platelet Count 233 K/mcL (140-400); Red Blood Count 5.19 M/mcL (4.19-5.50); Red Cell Distribution Width 13.2 % (11.5-14.5); Segmented Neutrophils % 88.5 %; White Blood Count 12.4 K/mcL (4.3-11.1)
[2020-03-26 07:33] LABS: Alanine Aminotransferase 56 Units/L (7-52); Albumin 3.4 g/dL (3.5-5.7); Albumin/Globulin Ratio 1.2 (1.1-2.2); Alkaline Phosphatase 92 Units/L (34-104); Aspartate Amino Transferase 59 Units/L (13-39); BUN/Creatinine Ratio 34 (6-26); Blood Urea Nitrogen 25 mg/dL (8-23); Calcium 9.2 mg/dL (8.6-10.3); Carbon Dioxide 37 mEq/L (23-29); Chloride 98 mEq/L (98-107); Globulin 2.8 g/dL (2.4-3.5); Glucose 96 mg/dL (70-105); Osmolality,Calculated 296 (280-300); Sodium 141 mEq/L (136-145); Total Protein 6.2 g/dL (6.4-8.9); eGFR For African Americans > 60 (> 60); eGFR For Non-African Americans > 60 (> 60)
[2020-03-26] MEDS: Sennosides/Docusate Sodium TABLET PO SCH ×2 (07:51→19:40)
[2020-03-26] MEDS ORDERED: ALPRAZolam 1 MG TABLET PO ONE (08:23)
[2020-03-26] MEDS ORDERED: Furosemide 20 MG TABLET PO SCH (09:00)
[2020-03-26] MEDS ORDERED: predniSONE 20 MG TABLET PO SCH (11:00)
[2020-03-26 11:36] LABS: VBG Ionized Calcium 1.06 mmol/L (1.15-1.35)
[2020-03-26] MEDS ORDERED: Melatonin 3 MG TABLET PO PRN (11:37)
[2020-03-26] MEDS ORDERED: GuaiFENesin Liq 200 MG/10 ML UDC PO PRN (11:37)
[2020-03-26] MEDS ORDERED: Ondansetron 4 MG/2 ML VIAL IVP PRN (11:37)
[2020-03-26 11:48] LABS: BUN/Creatinine Ratio 36 (6-26); Blood Urea Nitrogen 25 mg/dL (8-23); Calcium 9.5 mg/dL (8.6-10.3); Carbon Dioxide 32 mEq/L (23-29); Chloride 100 mEq/L (98-107); Glucose 114 mg/dL (70-105); Magnesium 2.2 mg/dL (1.6-2.6); Osmolality,Calculated 297 (280-300); Potassium 3.9 mEq/L (3.5-5.1); Sodium 141 mEq/L (136-145); eGFR For African Americans > 60 (> 60); eGFR For Non-African Americans > 60 (> 60)
[2020-03-26] MEDS ORDERED: Lidocaine Viscous Oral Soln 15 ML SOLUTION ONE (12:10)
[2020-03-26] MEDS ORDERED: Dexmedetomidine HCl 400 MCG/100 ML MLS IVC SCH (12:30)
[2020-03-26] MEDS ORDERED: Furosemide 40 MG/4 ML VIAL IVP ONE (12:30)
[2020-03-26] MEDS ORDERED: Furosemide 40 MG/4 ML VIAL ONE (12:34)
[2020-03-26] MEDS ORDERED: Dexmedetomidine HCl 400 MCG/100 ML MLS IVC ONE (12:34)
[2020-03-26] MEDS ORDERED: flumazeniL 0.5 MG/5 ML VIAL IVP ONE (16:33)
[2020-03-26 16:46] LABS: ABG Base Excess 9 mEq/L (-2 to 3); ABG HCO3 36 mEq/L (21-27); ABG Oxygen Saturation 86 % (95-98); ABG PCO2 52 mmHg (35-45); ABG PH 7.44 pH Units (7.32-7.45); ABG PO2 51 mmHg (85-104); ABG TCO2 37 mEq/L (20-26)
[2020-03-26] MEDS: *HR* Heparin 5,000 UNIT/ML VIAL SQ SCH ×2 (17:37→23:05)
[2020-03-26] MEDS ORDERED: Apixaban 5 MG TABLET PO SCH (21:00)
[2020-03-27] MEDS: Ipratropium 1 PUFF INHALER IH SCH ×6 (03:59→23:47)
[2020-03-27 05:21] LABS: Eosinophils % 0.7 %; Immature Platelets 6.5 % (1.1-6.1)
[2020-03-27 05:36] LABS: Basophils % 0.2 %; Eosinophils # 0.1 K/mcL (0.0-0.6); Hematocrit 49.3 % (37.5-50.1); Hemoglobin 16.5 g/dL (12.9-16.9); Immature Granulocytes % 0.8 % (0-4); Lymphocytes # 0.1 K/mcL (0.6-4.6); Lymphocytes % 1.4 %; Mean Corpuscular HGB Conc 33.5 g/dL (31.6-35.5); Mean Corpuscular Hemoglobin 30.6 pg (28.0-33.3); Mean Corpuscular Volume 91.3 fL (83.0-100.0); Mean Platelet Volume 13.7 fL (9.4-12.4); Monocytes # 0.5 K/mcL (0.0-1.3); Monocytes % 5.6 %; Neutrophils # 8.4 K/mcL (1.6-8.9); Nucleated Red Blood Cells 1.7 /100 WBC (0); Platelet Count 322 K/mcL (140-400); Red Cell Distribution Width 14.3 % (11.5-14.5); Segmented Neutrophils % 91.3 %; White Blood Count 9.2 K/mcL (4.3-11.1)
[2020-03-27 05:58] LABS: Alanine Aminotransferase 175 Units/L (7-52); Albumin 3.4 g/dL (3.5-5.7); Albumin/Globulin Ratio 1.1 (1.1-2.2); Alkaline Phosphatase 162 Units/L (34-104); Aspartate Amino Transferase 138 Units/L (13-39); BUN/Creatinine Ratio 34 (6-26); Bilirubin,Total 1.4 mg/dL (0.3-1.0); Blood Urea Nitrogen 24 mg/dL (8-23); Calcium 9.2 mg/dL (8.6-10.3); Carbon Dioxide 28 mEq/L (23-29); Chloride 101 mEq/L (98-107); Glucose 97 mg/dL (70-105); Osmolality,Calculated 296 (280-300); Potassium 4.2 mEq/L (3.5-5.1); Sodium 141 mEq/L (136-145); Total Protein 6.4 g/dL (6.4-8.9); eGFR For African Americans > 60 (> 60); eGFR For Non-African Americans > 60 (> 60)
[2020-03-27] MEDS: *HR* Heparin 5,000 UNIT/ML VIAL SQ SCH ×3 (06:17→20:10)
[2020-03-27] MEDS ORDERED: predniSONE 20 MG TABLET PO SCH (09:00)
[2020-03-27] MEDS: Furosemide 20 MG TABLET PO SCH (11:21)
[2020-03-27] MEDS: Sennosides/Docusate Sodium TABLET PO SCH ×2 (11:21→20:10)
[2020-03-27] MEDS: levoFLOXacin 750 MG TABLET PO SCH (11:22)
[2020-03-27] MEDS: Finasteride 5 MG TABLET PO SCH (11:22)
[2020-03-27] MEDS ORDERED: Albuterol 2.5 MG/3 ML NEBULIZER ONE (16:25)
[2020-03-27] MEDS ORDERED: *HR* EPINEPHrine 1 MG/10 ML SYRINGE INTRATRACH PRN (16:27)
[2020-03-27] MEDS ORDERED: Tetracaine/Benzocaine/Butamben 1 SPRAY AEROSOL MM ONE (16:27)
[2020-03-27] MEDS ORDERED: Lidocaine Viscous Oral Soln 15 ML SOLUTION MM ONE (16:27)
[2020-03-27] MEDS ORDERED: Ipratropium/Albuterol Neb 3 ML ONE (16:31)
[2020-03-27] MEDS ORDERED: Lidocaine Viscous Oral Soln 15 ML SOLUTION ONE (16:42)
[2020-03-27] MEDS: *HR* FentaNYL (PF) 100 MCG/2 ML VIAL IVP ONE ×2 (17:10→17:48)
[2020-03-27] MEDS ORDERED: Racepinephrine Neb 0.5 ML VIAL IH ONE (17:19)
[2020-03-27 18:32] LABS: Bilirubin,Urine Moderate (Negative); Blood,Urine Large (Negative); Clarity,Urine Cloudy (Clear); Glucose,Urine (UA) Normal (Normal); Ketones,Urine Trace mg/dL (Negative); Leukocyte Esterase,Urine Moderate (Negative); Nitrite,Urine Negative (Negative); Protein,Urine 30 mg/dL (Neg-Trace); Specific Gravity,Urine 1.025 (1.010-1.025); Urobilinogen,Urine Normal (Normal)
[2020-03-27 18:34] LABS: Hyaline Casts,Urine None Seen per lpf (None-Few); Squamous Epithelial Cell,Urine Few per lpf (None-Few)
[2020-03-27 18:35] LABS: Color,Urine Dark Yellow (Yellow)
[2020-03-27 18:49] LABS: Bacteria,Urine Few per hpf (None-Few); RBC,Urine TNTC per hpf (0-3)
[2020-03-27 19:09] LABS: Albumin 3.4 g/dL (3.5-5.7); Albumin/Globulin Ratio 1.3 (1.1-2.2); Bilirubin,Direct 2.7 mg/dL (0.0-0.2); Bilirubin,Indirect 0.9 mg/dL (0.0-1.0); Bilirubin,Total 3.6 mg/dL (0.3-1.0); Globulin 2.6 g/dL (2.4-3.5)
[2020-03-27 19:31] LABS: Appearance of Body Fluid Clear (Clear)
[2020-03-27 19:32] LABS: Volume of Body Fluid 25 mL
[2020-03-28] MEDS: Ipratropium 1 PUFF INHALER IH SCH ×3 (04:08→11:57)
[2020-03-28 05:16] LABS: Basophils % 0.3 %; Eosinophils # 0.1 K/mcL (0.0-0.6); Eosinophils % 0.7 %; Hematocrit 48.2 % (37.5-50.1); Hemoglobin 15.9 g/dL (12.9-16.9); Immature Granulocytes % 0.8 % (0-4); Lymphocytes # 0.4 K/mcL (0.6-4.6); Lymphocytes % 3.1 %; Mean Corpuscular Hemoglobin 30.3 pg (28.0-33.3); Mean Platelet Volume 10.8 fL (9.4-12.4); Monocytes # 0.6 K/mcL (0.0-1.3); Monocytes % 4.8 %; Neutrophils # 10.6 K/mcL (1.6-8.9); Platelet Count 209 K/mcL (140-400); Red Blood Count 5.24 M/mcL (4.19-5.50); Red Cell Distribution Width 13.3 % (11.5-14.5); Segmented Neutrophils % 90.3 %; White Blood Count 11.8 K/mcL (4.3-11.1)
[2020-03-28 05:35] LABS: BUN/Creatinine Ratio 22 (6-26); Blood Urea Nitrogen 18 mg/dL (8-23); Carbon Dioxide 35 mEq/L (23-29); Chloride 99 mEq/L (98-107); Glucose 133 mg/dL (70-105); Potassium 3.9 mEq/L (3.5-5.1); Sodium 140 mEq/L (136-145); eGFR For African Americans > 60 (> 60); eGFR For Non-African Americans > 60 (> 60)
[2020-03-28 05:36] LABS: Alanine Aminotransferase 498 Units/L (7-52); Albumin 3.4 g/dL (3.5-5.7); Albumin/Globulin Ratio 1.3 (1.1-2.2); Alkaline Phosphatase 351 Units/L (34-104); Aspartate Amino Transferase 434 Units/L (13-39); Bilirubin,Total 4.7 mg/dL (0.3-1.0); Calcium 9.2 mg/dL (8.6-10.3); Globulin 2.7 g/dL (2.4-3.5); Osmolality,Calculated 294 (280-300); Total Protein 6.1 g/dL (6.4-8.9)
[2020-03-28] MEDS: *HR* Heparin 5,000 UNIT/ML VIAL SQ SCH (05:58)
[2020-03-28] MEDS: Furosemide 20 MG TABLET PO SCH (08:45)
[2020-03-28] MEDS: levoFLOXacin 750 MG TABLET PO SCH (08:45)
[2020-03-28] MEDS: Finasteride 5 MG TABLET PO SCH (08:45)
[2020-03-28] MEDS: Sennosides/Docusate Sodium TABLET PO SCH (08:45)
[2020-03-28 10:56] LABS: Hepatitis B Surface Antigen Nonreactive (Nonreactive)
[2020-03-28] MEDS ORDERED: Apixaban 5 MG TABLET PO SCH ×2 (11:00→21:00)
[2020-03-28 11:25] LABS: Hepatitis B Core IgM Nonreactive (Nonreactive)
[2020-03-28 11:26] LABS: Hepatitis C Virus Antibody Nonreactive (Nonreactive)
[2020-03-28 11:27] LABS: Hepatitis A Antibody IgM Nonreactive (Nonreactive)
[2020-03-28] MEDS ORDERED: Tetracaine/Benzocaine/Butamben 1 SPRAY AEROSOL MM ONE (12:15)
[2020-03-28] MEDS ORDERED: Melatonin 3 MG TABLET PO PRN (12:15)
[2020-03-28] MEDS ORDERED: GuaiFENesin Liq 200 MG/10 ML UDC PO PRN (12:15)
[2020-03-28] MEDS ORDERED: Lidocaine Viscous Oral Soln 15 ML SOLUTION MM ONE (12:15)
[2020-03-28] MEDS ORDERED: Ondansetron 4 MG/2 ML VIAL IVP PRN (12:15)
[2020-03-28 14:15] VITALS: BP 121/81
[2020-03-28] MEDS ORDERED: Ipratropium 1 PUFF INHALER IH SCH (16:00)
[2020-03-28] MEDS ORDERED: Sennosides/Docusate Sodium TABLET PO SCH (21:00)
[2020-03-29] MEDS ORDERED: Furosemide 20 MG TABLET PO SCH (09:00)
[2020-03-29] MEDS ORDERED: levoFLOXacin 750 MG TABLET PO SCH (09:00)
[2020-03-29] MEDS ORDERED: Finasteride 5 MG TABLET PO SCH (09:00)
== END 2020-03-28 16:25 | disposition short-term general hospital (02) | DRG 180 ==
LOC: EMEROOARM 02:28 → 2NENU 02:28 → OBSVTOIN 04:21 → 2NENU 05:04 → ICNU 11:09
PROVIDERS: ADMIT Family Medicine; ATTEND Family Medicine
PROC: ENDOBRF (2020-03-27 17:00)